=== PATIENT | female | born 1990 | race Caucasian/White ===

== ENCOUNTER 2016-03-26 13:02 | Emergency (ER) | payer SELFPAY ==
[2016-03-26 13:35] VITALS: BP 132/77
--- NOTE | 2016-03-26 13:51 | UC ---
Respiratory Complaint HPI - HPI Summary HPI Summary: COUGH X 1 DAY, + CHEST CONGESTION, RUNNY NOSE, NO FEVER , + CHILLS - History of Current Complaint Chief Complaint: UCGeneralIllness Stated Complaint: RESPIRATORY COMPLAINT Time Seen by Provider: 03/26/16 13:44 Hx Obtained From: Patient Hx Last Menstrual Period: 2 YEARS AGO ?: No Onset/Duration: Gradual Onset, Lasting Days - 1, Still Present Timing: Constant Severity Initially: Moderate Severity Currently: Moderate Character: Cough: Nonproductive Aggravating Factors: Exertion, Deep Breaths Alleviating Factors: Nothing Associated Signs And Symptoms: Positive: Chills, URI, Nasal Congestion. Negative: Dyspnea, Fever, Pleuritic Chest Pain, Wheezing, Hemoptysis, Dizziness , Calf Pain, Calf Swelling - Allergies/Home Medications Allergies/Adverse Reactions: Allergies Allergy/AdvReac Type Severity Reaction Status Date / Time No Known Allergies Allergy Verified 08/21/15 20:02 PMH/Surg Hx/FS Hx/Imm Hx Endocrine History Of: Denies: Diabetes, Thyroid Disease Cardiovascular History Of: Denies: Cardiac Disorders, Hypertension Respiratory History Of: Denies: COPD, Asthma GI/ History Of: Denies: Ulcer - Surgical History Surgical History: None - Family History Known Family History: Positive: Hypertension - Social History Alcohol Use: Rare Substance Use Type: None Smoking Status (MU): Never Smoked Tobacco Have You Smoked in the Last Year: No Review of Systems Constitutional: Chills, Fatigue Skin: Negative Eyes: Negative ENT: Nasal Discharge Respiratory: Cough Cardiovascular: Negative Gastrointestinal: Negative Genitourinary: Negative Motor: Negative All Other Systems Reviewed And Are Negative: Yes Physical Exam Triage Information Reviewed: Yes Appearance: Well-Appearing, No Pain Distress, Well-Nourished Vital Signs: Initial Vital Signs Temp 98.1 F 03/26/16 13:31 Pulse 92 03/26/16 13:31 Resp 16 03/26/16 13:31 BP 132/77 03/26/16 13:31 Pulse Ox 99 03/26/16 13:31 Vital Signs Reviewed: Yes Eye Exam: Normal Eyes: Positive: Conjunctiva Clear ENT: Positive: Normal ENT inspection, Hearing grossly normal, Pharynx normal, Nasal congestion, Nasal drainage, TMs normal Neck exam: Normal Neck: Positive: Supple, Nontender, No Lymphadenopathy Respiratory: Positive: Chest non-tender, Lungs clear, Normal breath sounds, No respiratory distress Cardiovascular: Positive: RRR, No Murmur, Pulses Normal UC Diagnostic Evaluation - Laboratory O2 Sat by Pulse Oximetry: 99 Respiratory Course/Dx - Differential Dx/Diagnosis Provider Diagnoses: URI Discharge - Discharge Plan Condition: Stable Disposition: HOME Patient Education Materials: Upper Respiratory Infection (ED) Forms: *Work Release Referrals: Kathrin Laird MD [Primary Care Provider] - If Needed
== END 2016-03-26 13:56 | disposition home or self-care (01) ==
LOC: UCCORT 13:02
DX: J06.9 Acute upper respiratory infection, unspecified (principal)
CPT/HCPCS: 99211; G0463

== ENCOUNTER 2017-07-10 17:34 | Emergency (ER) | payer OTHER ==
[2017-07-10 18:02] VITALS: BP 150/102
[2017-07-10] MEDS ORDERED: Ondansetron ODT TAB* 4 MG SL ONE (18:29)
--- NOTE | 2017-07-10 18:46 | UC ---
Abdominal Pain Female HPI - HPI Summary HPI Summary: Patient is a 27-year-old female presenting to the with chief complaint of bilateral upper quadrant pain since 4 days ago. Denies any urinary symptoms. Pain is worse with deep inhalation and worse after eating. She continues to eat and drink okay. Denies any constipation or diarrhea. Last bowel movement this morning. Last Menser cycle March, but states this is very irregular for her where she has gone several years without having a menstrual cycle. Unsure if she is . She is currently not trying, but denies any oral contraceptives. No history of ovarian cysts, gallbladder issues or any other abdominal surgeries. Denies any fevers, sweats, chills. Denies any vaginal discharge. She endorses mild nausea, worse after eating. - History of Current Complaint Chief Complaint: UCGI Stated Complaint: ABDOMINAL COMPLAINT Time Seen by Provider: 07/10/17 17:38 Hx Obtained From: Patient Hx Last Menstrual Period: 03/24/17 ?: No Onset/Duration: Sudden Onset Timing: Constant Severity Initially: Mild Severity Currently: Mild Pain Intensity: 9 Pain Scale Used: 0-10 Numeric Location: Discrete At: RUQ, Discrete At: LUQ Radiates: No Radiates to: Back Character: Aching Aggravating Factor(s): Food, Movement Alleviating Factor(s): Nothing Associated Signs and Symptoms: Positive: Negative - Risk Factors Ectopic Risk Factor: Negative Ovarian Torsion Risk Factor: Negative Allergies/Adverse Reactions: Allergies Allergy/AdvReac Type Severity Reaction Status Date / Time No Known Allergies Allergy Verified 07/10/17 18:02 PMH/Surg Hx/FS Hx/Imm Hx Previously Healthy: Yes - Surgical History Surgical History: None - Family History Known Family History: Positive: Hypertension - Social History Occupation: Employed Full-time Lives: With Family Alcohol Use: Rare Substance Use Type: None Smoking Status (MU): Never Smoked Tobacco Have You Smoked in the Last Year: No Review of Systems Constitutional: Negative Skin: Negative Respiratory: Negative Cardiovascular: Negative Gastrointestinal: Abdominal Pain, Vomiting, Nausea Genitourinary: Negative Motor: Negative Neurological: Negative Psychological: Negative Is Patient Immunocompromised?: No All Other Systems Reviewed And Are Negative: Yes Physical Exam Triage Information Reviewed: Yes Appearance: Well-Appearing, Well-Nourished Vital Signs: Initial Vital Signs Temp 97.8 F 07/10/17 17:57 Pulse 73 07/10/17 17:57 Resp 18 07/10/17 17:57 BP 150/102 07/10/17 17:57 Pulse Ox 96 07/10/17 17:57 Vital Signs Reviewed: Yes - he is tomorrow to brutal dislike Eye Exam: Normal - I would take Neck exam: Normal Neck: Positive: Supple Respiratory Exam: Normal Respiratory: Positive: Chest non-tender - Vital, Lungs clear Abdomen Description: Positive: Other: - Tenderness to the bilateral upper quadrants Musculoskeletal Exam: Normal Musculoskeletal: Positive: Strength Intact Psychological: Positive: Normal Response To Family, Age Appropriate Behavior Skin Exam: Normal Abd Pain Female Course/Dx - Course Course Of Treatment: During the course of treatment, the patient's evaluated for bilateral upper quadrant pain. Symptoms began approximate 4 days ago. Denies any fevers, sweats, chills. Abdominal x-ray obtained. Zofran given sublingually. Urine and checked. Abdominal x-ray shows no acute findings. Urine and both negative. I discussed with patient treatment options. I have encouraged Zofran and plenty of fluids. She is to go to the ED for any worsening or changing symptoms. She will follow-up with her PCP early next week. We'll she has some right upper quadrant pain intermittently, this is not her chief complaint and she is afebrile. I did not believe she needs to go to the ED at this time for further evaluation, however she understands if any symptoms worsen she will go to the ED. She remained afebrile with other vital signs stable. - Differential Dx/Diagnosis Differential Diagnosis: Bowel Obstruction, Constipation, Urinary Tract Infection Provider Diagnoses: Diffuse abdominal pain Discharge - Sign-Out/Discharge Documenting (check all that apply): Discharge - Discharge Plan Condition: Stable Disposition: HOME Prescriptions: Ondansetron ODT TAB* [Zofran 4 MG Odt TAB*] 4 mg PO Q6H PRN #12 tab.odt MDD 4 PRN Reason: Nausea Patient Education Materials: Acute Nausea and Vomiting (ED) Referrals: Kathrin Laird MD [Primary Care Provider] - Additional Instructions: Zofran as needed for nausea Ibuprofen 600mg three times daily for any pain Please follow up with PCP If any symptoms worsen, go to the ED - Billing Disposition and Condition Condition: STABLE Disposition: HOME
--- NOTE | 2017-07-10 19:29 | RAD ---
INDICATION: Abdominal pain. COMPARISON: There are no prior studies available for comparison. TECHNIQUE: Supine and upright views of the abdomen were obtained. FINDINGS: The small bowel and colon appear nondistended. No free intraperitoneal air is seen. No abnormal calcifications are seen. IMPRESSION: NO EVIDENCE FOR OBSTRUCTION.
== END 2017-07-10 19:45 | disposition home or self-care (01) ==
LOC: UCEAST 17:34
DX: R10.84 Generalized abdominal pain (principal); R11.2 Nausea with vomiting, unspecified; Z32.02 Encounter for pregnancy test, result negative
CPT/HCPCS: 74019; 81003; 84702; 87086; 99212; A9270-GY; G0463

== ENCOUNTER 2017-07-12 10:17 | Emergency (ER) | payer OTHER ==
[2017-07-12] MEDS ORDERED: Ondansetron INJ* 2 MG/ML VIAL IV ONE (11:09)
--- NOTE | 2017-07-12 11:10 | ED ---
Abdominal Pain/Female - HPI Summary HPI Summary: Patient presents to the ED with chief complaint of right upper quadrant pain. She was seen by myself in the urgent care 2 days ago. She endorses continuing pain. She was given Zofran in the urgent care and encouraged to follow up in the ED for any worsening or changing symptoms. She arrives today afebrile with other vital signs stable. Symptoms are worsened after eating and better with rest. Pain is worse with palpation to the right upper quadrant. While she had right upper quadrant and left upper quadrant pain 2 days ago, she only complains of right upper quadrant pain on this date. She continues to have regular bowel movements. Denies any urinary symptoms. Denies any shortness of breath or chest pain. Below is urgent care note 2 days ago. Patient is a 27-year-old female presenting to the with chief complaint of bilateral upper quadrant pain since 4 days ago. Denies any urinary symptoms. Pain is worse with deep inhalation and worse after eating. She continues to eat and drink okay. Denies any constipation or diarrhea. Last bowel movement this morning. LMP March, but states this is very irregular for her where she has gone several years without having a menstrual cycle. Unsure if she is . She is currently not trying, but denies any oral contraceptives. No history of ovarian cysts, gallbladder issues or any other abdominal surgeries. Denies any fevers, sweats, chills. Denies any vaginal discharge. She endorses mild nausea, worse after eating - History of Current Complaint Chief Complaint: EDAbdPain Stated Complaint: ABD PAIN-1 WEEK Time Seen by Provider: 07/12/17 10:35 Hx Obtained From: Patient Hx Last Menstrual Period: 03/24/17 ?: No Onset/Duration: Sudden Onset Timing: Constant Severity Initially: Moderate Severity Currently: Severe Pain Intensity: 7 Pain Scale Used: 0-10 Numeric Location: Discrete At: RUQ Radiates: No Character: Cramping Aggravating Factor(s): Food Alleviating Factor(s): Nothing Associated Signs and Symptoms: Positive: Negative. Negative: Vaginal Discharge , Nausea, Vomiting, Diarrhea - Risk Factors Ectopic Risk Factor: Negative Ovarian Torsion Risk Factor: Reproductive Age, Ovarian Cysts/Tumors Allergies/Adverse Reactions: Allergies Allergy/AdvReac Type Severity Reaction Status Date / Time No Known Allergies Allergy Verified 07/12/17 10:27 PMH/Surg Hx/FS Hx/Imm Hx Previously Healthy: Yes Endocrine/Hematology History: Denies: Hx Diabetes, Hx Thyroid Disease Cardiovascular History: Denies: Hx Hypertension Respiratory History: Denies: Hx Asthma, Hx Chronic Obstructive Pulmonary Disease (COPD) GI History: Denies: Hx Ulcer History: Denies: Hx Kidney Stones - Immunization History Hx Pertussis Vaccination: No Immunizations Up to Date: Unable to Obtain/Confirm Infectious Disease History: No Infectious Disease History: Denies: Hx Hepatitis, Hx Human Immunodeficiency Virus (HIV), Traveled Outside the [place] in Last 30 Days - Family History Known Family History: Positive: Hypertension - Social History Occupation: Employed Full-time Lives: With Family Alcohol Use: Rare Hx Substance Use: No Substance Use Type: Reports: None Hx Tobacco Use: No Smoking Status (MU): Never Smoked Tobacco Have You Smoked in the Last Year: No Review of Systems Constitutional: Negative Negative: Fever, Chills, Fatigue, Skin Diaphoresis Eyes: Negative Cardiovascular: Negative Respiratory: Negative Positive: Abdominal Pain - Right side body pain. Negative: Vomiting, Diarrhea, Nausea Genitourinary: Negative Positive: no symptoms reported, see HPI Skin: Negative Neurological: Negative All Other Systems Reviewed And Are Negative: Yes Physical Exam Triage Information Reviewed: Yes Vital Signs On Initial Exam: Initial Vitals Temp Pulse Resp BP Pulse Ox 98.4 F 90 15 131/81 94 07/12/17 10:27 07/12/17 10:27 07/12/17 10:27 07/12/17 10:27 07/12/17 10:27 Vital Signs Reviewed: Yes Appearance: Positive: Well-Appearing, No Pain Distress Skin: Positive: Warm, Skin Color Reflects Adequate Perfusion Head/Face: Positive: Normal Head/Face Inspection Eyes: Positive: EOMI, CARLITOS, Conjunctiva Clear Neck: Positive: Supple, No Lymphadenopathy Respiratory/Lung Sounds: Positive: Clear to Auscultation, Breath Sounds Present Abdomen Description: Positive: Soft, Other: - Pain to the R side body Bowel Sounds: Positive: Present Musculoskeletal: Positive: Normal, Strength/ROM Intact Neurological: Positive: Speech Normal Psychiatric: Positive: Normal, Affect/Mood Appropriate AVPU Assessment: Alert Diagnostics - Vital Signs Vital Signs Temp Pulse Resp BP Pulse Ox 07/12/17 10:27 98.4 F 90 15 131/81 94 - Laboratory Result Diagrams: 07/12/17 11:01 07/12/17 11:01 Lab Statement: Any lab studies that have been ordered have been reviewed, and results considered in the medical decision making process. Abdominal Pain Fem Course/Dx - Course Course Of Treatment: The patient is reevaluated by myself in the ED from 2 days ago from urgent care. Same complaint. Endorses right upper quadrant pain, worse after eating area and she is afebrile and states has been otherwise feeling well. Bowel movements normal. No urinary symptoms. Ultrasound and CT ordered simultaneously on arrival. Labs ordered and are unremarkable. UA obtained which shows trace leuks. Ultrasound shows no acute findings. CT IMPRESSION: No evidence of bowel obstruction is noted. Moderately enlarged lymph nodes are noted in the cecal mesentery the largest with a short. axis of 11 mm. I cannot totally exclude mesenteric adenitis. Bilateral ovarian cysts are noted measuring up to 3.9 cm on the left 3.2 cm right. I discussed this with patient. I have given tramadol for any pain relief. She is also referred to ALAN Calvin for any worsening or changing symptoms. She is referred to Dr. Low for her ovarian cyst. I discussed with the patient that this is likely musculoskeletal due to pain on palpation without any additional findings of the CT. She is okay at this time for discharge and is stable. Denies nausea , pain at this time, afebrile and otherwise feeling well. - Diagnoses Differential Diagnosis: Positive: Appendicitis, Bowel Obstruction, Constipation , Ovarian Cyst Provider Diagnoses: Abdominal pain Discharge - Sign-Out/Discharge Documenting (check all that apply): Discharge - Discharge Plan Condition: Stable Disposition: HOME Prescriptions: traMADol TAB* [Ultram*] 50 mg PO Q8H PRN #12 tab MDD 3 PRN Reason: Pain Patient Education Materials: Ovarian Cyst (ED), Abdominal Pain (ED), Mesenteric Adenitis (ED) Referrals: Shekhar Younger MD [Medical Doctor] - Kathrin Laird MD [Primary Care Provider] - Bola Low MD [Medical Doctor] - Additional Instructions: Tramadol up to 3 times daily as needed for any pain Please follow-up with Dr. Younger for any worsening or changing symptoms Please follow-up with Dr. Low for ovarian cysts - Billing Disposition and Condition Condition: STABLE Disposition: HOME
[2017-07-12 11:16] LABS: ABS Basophils 0 10^3/ul (0-0.2); ABS Eosinophils 0 10^3/ul (0-0.6); ABS Lymphocytes 1.6 10^3/ul (1.0-4.8); ABS Monocytes 0.3 10^3/ul (0-0.8); ABS Neutrophils 4.6 10^3/ul (1.5-7.7); ABS Nucleated RBC 0 10^3/ul; Eosinophil % 0.6 % (0-6); Hematocrit 41 % (35-47); Hemoglobin 13.8 g/dl (12.0-16.0); Lymphocyte % 23.8 % (25-47); Mean Corpuscular HGB Conc 33 g/dl (31-36); Mean Corpuscular Hemoglobin 28 pg (27-31); Mean Corpuscular Volume 83 fL (80-97); Mean Platelet Volume 9.5 um3 (7.4-10.4); Nucleated Red Blood Cells % 0; Platelet Count 227 10^3/ul (150-450); Red Blood Count 5.01 10^6/ul (4.0-5.4); Red Cell Distribution Width 13 % (10.5-15); White Blood Count 6.6 10^3/ul (3.5-10.8)
[2017-07-12 11:33] LABS: EGFR Non-African American 71.3 (>60)
--- NOTE | 2017-07-12 11:42 | RAD ---
Indication: Right upper quadrant pain. Real-time sonography of the right upper quadrant was performed. The liver measures 16.1 cm in length. It is diffusely increased in echogenicity consistent with hepatic steatosis. The gallbladder demonstrates no gallstones, pericholecystic fluid or wall thickening. The common duct measures 4 mm. The right kidney measures 11.2 x 5.9 x 5.8 cm with no hydronephrosis. The pancreas head, neck and proximal body demonstrates no mass or pancreatic ductal dilatation. IMPRESSION: Echogenic liver consistent with hepatic steatosis. No evidence of cholelithiasis or biliary duct dilatation is noted.
[2017-07-12 12:10] LABS: Urine Appearance Clear; Urine Blood Negative (Negative); Urine Color Yellow; Urine Ketones Negative (Negative); Urine Protein Negative (Negative); Urine Specific Gravity 1.021 (1.010-1.030); Urine Urobilinogen Negative (Negative)
[2017-07-12] MEDS ORDERED: Iohexol 300* (CONTRAST) 10 ML SDV IV ONE (12:14)
--- NOTE | 2017-07-12 12:51 | RAD ---
INDICATION: Right upper quadrant and left upper quadrant pain.] Contrast: Administered 150.2 ml of OMNIPAQUE 300 mg/ml CT of the abdomen and pelvis was performed after oral and IV contrast administration. Coronal and sagittal reconstructed images were obtained. The lung bases demonstrate no pleural fluid, nodules or masses. Heart is normal size without evidence of pericardial effusion. Liver is normal in size. No focal lesions or intrahepatic duct dilatation is noted. The spleen is normal in size. The pancreas demonstrates no mass or pancreatic duct dilatation. The common duct is not dilated. No adrenal lesions are noted. The common duct is not dilated. The gallbladder demonstrates no calcified gallstones, pericholecystic fluid or wall thickening. The kidneys demonstrates no hydronephrosis. No focal lesions are noted. No retroperitoneal adenopathy is noted. CT of the pelvis demonstrates no retroperitoneal or pelvic lymphadenopathy. No evidence of bowel obstruction is noted. There are several moderately enlarged lymph nodes in the cecal mesentery. Possibility of mesenteric adenitis should BE considered. The largest lymph node measures up to 11 mm in shortest axis although multiple other lesions are noted. CT of the pelvis demonstrates stool throughout the colon. The uterus is otherwise unremarkable. There is a left ovarian cyst measuring up to 3.9 cm. Right ovarian cyst measures up to 3.2 cm. No hernias are noted. Urinary bladder is unremarkable. IMPRESSION: No evidence of bowel obstruction is noted. Moderately enlarged lymph nodes are noted in the cecal mesentery the largest with a short axis of 11 mm. I cannot totally exclude mesenteric adenitis. Bilateral ovarian cysts are noted measuring up to 3.9 cm on the left 3.2 cm right.
[2017-07-12 13:30] VITALS: BP 131/88
== END 2017-07-12 13:30 | disposition home or self-care (01) ==
LOC: ED 10:17
DX: R10.11 Right upper quadrant pain (principal); N83.202 Unspecified ovarian cyst, left side; N83.201 Unspecified ovarian cyst, right side
CPT/HCPCS: 36415; 74177; 76705; 80053; 81003; 81015; 83605; 85025; 87086; 96374; 96375; 99282; J2405; Q9967

== ENCOUNTER 2018-11-02 10:18 | Emergency (ER) | payer MEDICAID, OTHER ==
[2018-11-02 10:30] VITALS: BP 155/95
--- NOTE | 2018-11-02 10:32 | UC ---
Neck Pain HPI - HPI Summary HPI Summary: 28 yo female presents with neck pain. She tells me that about 1 week ago she was moving and doing a lot of lifting and packing. The next morning she woke up with right sided upper back and neck pain/stiffness. She took ibuprofen and used icyhot with good relief for 2 days and her pain subsided for a day, but then returned 2 days ago. She does not have any radiation of her pain. Denies specific injury, headache, dizziness, numbness, or tingling. No SOB or chest pain - History of Current Complaint Chief Complaint: UCGeneralIllness Stated Complaint: PAIN IN NECK UPPER BACK Time Seen by Provider: 11/02/18 10:32 Hx Obtained From: Patient Hx Last Menstrual Period: dec Onset/Duration: Sudden Onset Severity: Severe Pain Intensity: 9 Pain Scale Used: 0-10 Numeric - Allergies/Home Medications Allergies/Adverse Reactions: Allergies Allergy/AdvReac Type Severity Reaction Status Date / Time No Known Allergies Allergy Verified 11/02/18 10:30 Home Medications: Home Medications Ibuprofen TAB* [Motrin TAB* 400 MG] 1 tab PO DAILY 11/02/18 [History Confirmed 11/02/18] PMH/Surg Hx/FS Hx/Imm Hx - Additional Past Medical History Additional PMH: None - Surgical History Surgical History: None - Family History Known Family History: Positive: Hypertension - Social History Lives: With Family Alcohol Use: Rare Substance Use Type: None Smoking Status (MU): Never Smoked Tobacco Have You Smoked in the Last Year: No Review of Systems All Other Systems Reviewed And Are Negative: Yes Constitutional: Positive: Negative Skin: Positive: Negative Respiratory: Positive: Negative Cardiovascular: Positive: Negative Neurovascular: Positive: Negative Musculoskeletal: Positive: Other: - Neck pain Neurological: Positive: Negative Psychological: Positive: Negative Physical Exam - Summary Physical Exam Summary: GENERAL: NAD. WDWN. No pain distress. SKIN: No rashes, sores, lesions, or open wounds. CHEST: No accessory muscle use. Breathing comfortably and in no distress. CV: Pulses intact radial and ulnar. Cap refill <2seconds MSK: RIGHT upper trapezius muscle TTP with spasm into right posterior neck. Pain in same area with movement of right shoulder. Strength 5/5 including tellers supervisor strength. No edema or obvious bony deformities. Negative spurlings. NEURO: Alert. Sensations intact C4-T1 bl PSYCH: Age appropriate behavior. Triage Information Reviewed: Yes Vital Signs: Initial Vital Signs Temp 98 F 11/02/18 10:27 Pulse 95 11/02/18 10:27 Resp 18 11/02/18 10:27 BP 155/95 11/02/18 10:27 Pulse Ox 100 11/02/18 10:27 Vital Signs Reviewed: Yes Neck Pain Course/Dx - Course Course Of Treatment: XR: IMPRESSION: STRAIGHTENING OF THE CERVICAL LORDOSIS. MILD DEGENERATIVE DISC DISEASE. Suspect muscle strain/spasm. She was given Toradol in the clinic for her discomfort. Rx for flexeril and advised to continue ibuprofen and gentle stretching exercises. - Differential Dx/Diagnosis Provider Diagnosis: Neck muscle spasm Discharge - Sign-Out/Discharge Documenting (check all that apply): Patient Departure All imaging exams completed and their final reports reviewed: Yes - Discharge Plan Condition: Stable Disposition: HOME Prescriptions: Cyclobenzaprine TAB* [Flexeril 10 MG TAB*] 10 mg PO TID PRN #21 tab PRN Reason: spasm Patient Education Materials: Muscle Spasm (ED) Referrals: Kathrin Laird MD [Primary Care Provider] - Additional Instructions: If you develop a fever, shortness of breath, chest pain, new or worsening symptoms - please call your PCP or go to the ED immediately. Your blood pressure was high at todays visit. Please see your primary provider within 4 weeks for recheck and re-evaluation. Continue to rest and apply heat your to area of muscle spasm. Practice gentle stretching of the area. If your symptoms have not improved within 4-5 days, please schedule an appointment with your Primary Doctor for a recheck - Billing Disposition and Condition Condition: STABLE Disposition: Home
[2018-11-02] MEDS ORDERED: Ketorolac *IM* INJ* 60 MG/2 ML VIAL IM ONE (10:38)
== END 2018-11-02 11:14 | disposition home or self-care (01) ==
LOC: UCEAST 10:18
DX: M62.830 Muscle spasm of back (principal)
CPT/HCPCS: 72050; 96372; 99212; G0463; J1885